=== PATIENT | male | born 1940 | race Caucasian/White ===

== ENCOUNTER 2018-04-08 07:59 | Day surgery (SDC) | payer MEDICARE ==
[~2018-04-08] VITALS: Ht 172.7 cm; Wt 86.2 kg
[~2018-04-08 07:59] MED LIST: ADULT ASPIRIN R81 MG PO; FISH OIL1000 MG PO; PROSCAR5 MG PO; PROTONIX40 M2 PO; SIMVASTATIN40 MG PO; SM ASPIRIN ADUL81 MG PO; TAMSULOSIN HCL0.4 MG PO; VITAMIN B-121000 MCG PO; VITAMIN D31000 UNI1 PO; ZESTRIL5 M1 PO; ZOCOR20 M1 PO
[2018-04-08 10:24] VITALS: BP 118/63
== END 2018-04-08 10:30 | disposition home or self-care (01) ==
LOC: ENDO 07:59
PROVIDERS: ATTEND Internal Medicine Gastroenterology
PROC: 0DBP8ZX Excision of Rectum, Via Natural or Artificial Opening Endoscopic, Diagnostic (ICD-10-PCS; principal; 2018-04-08)
PROC: 0DBN8ZX Excision of Sigmoid Colon, Via Natural or Artificial Opening Endoscopic, Diagnostic (ICD-10-PCS; 2018-04-08)
DX: R19.7 Diarrhea, unspecified (principal); K57.30 Diverticulosis of large intestine without perforation or abscess without bleeding; K64.8 Other hemorrhoids; K64.4 Residual hemorrhoidal skin tags; D12.5 Benign neoplasm of sigmoid colon; K62.1 Rectal polyp; K22.710 Barrett's esophagus with low grade dysplasia; K29.70 Gastritis, unspecified, without bleeding; Q40.8 Other specified congenital malformations of upper alimentary tract; E78.00 Pure hypercholesterolemia, unspecified; Z86.010 Personal history of colon polyps

== ENCOUNTER 2018-08-30 07:08 | Day surgery (SDC) | payer MEDICARE ==
[2018-08-30 09:30] VITALS: BP 98/57
== END 2018-08-30 09:45 | disposition home or self-care (01) ==
LOC: ENDO 07:08 → ORM 09:00 → ENDO 09:00
PROVIDERS: ATTEND Internal Medicine Gastroenterology
PROC: 0DB58ZX Excision of Esophagus, Via Natural or Artificial Opening Endoscopic, Diagnostic (ICD-10-PCS; principal; 2018-08-30)
DX: K22.70 Barrett's esophagus without dysplasia (principal); K21.9 Gastro-esophageal reflux disease without esophagitis; K29.50 Unspecified chronic gastritis without bleeding; K44.9 Diaphragmatic hernia without obstruction or gangrene; K57.30 Diverticulosis of large intestine without perforation or abscess without bleeding; K64.8 Other hemorrhoids; E78.00 Pure hypercholesterolemia, unspecified; Z79.899 Other long term (current) drug therapy; Z86.010 Personal history of colon polyps

== ENCOUNTER 2019-09-26 06:28 | Day surgery (SDC) | payer MEDICARE ==
[~2019-09-26] VITALS: Ht 172.7 cm; Wt 89.8 kg
[~2019-09-26 06:28] MED LIST changes: +FINASTERIDE5 MG PO
[2019-09-26 09:13] VITALS: BP 117/58
== END 2019-09-26 09:21 | disposition home or self-care (01) ==
LOC: ENDO 06:28 → ORM 07:30 → ENDO 09:21
PROVIDERS: ATTEND Internal Medicine Gastroenterology
PROC: 0DD48ZX Extraction of Esophagogastric Junction, Via Natural or Artificial Opening Endoscopic, Diagnostic (ICD-10-PCS; principal; 2019-09-26)
DX: K22.70 Barrett's esophagus without dysplasia (principal); K21.9 Gastro-esophageal reflux disease without esophagitis; K44.9 Diaphragmatic hernia without obstruction or gangrene; K29.70 Gastritis, unspecified, without bleeding; K31.7 Polyp of stomach and duodenum; K57.30 Diverticulosis of large intestine without perforation or abscess without bleeding; Z86.010 Personal history of colon polyps